=== PATIENT | female | born 1950 | race Caucasian/White ===

== ENCOUNTER 2018-07-23 15:34 | Inpatient (IN) ==
[2018-07-23 18:45] LABS: Basophils # 0.1 10*3/uL (0.0-0.2); Basophils % 0.4 % (0.0-0.8); Eosinophils % 0.3 % (0.00-10.9); Hematocrit 56.5 VOL% (35.7-47.0); Hemoglobin 17.5 GM/DL (12.0-16.0); Immature Granulocytes % 0.6 %; Immature Granulocytes Absolute 0.09 #; Lymphocytes # 0.8 10*3/uL (1.4-4.0); Mean Corpuscular Hemoglobin 27 PG (27-34); Mean Corpuscular Volume 88.1 FL (87-102); Mean Platelet Volume 10.6 FL (9.6-12.0); Monocytes # 0.5 10*3/uL (0.11-0.8); Neutrophils # 14.4 10*3/uL (1.4-7.4); Neutrophils % 90.7 % (38.7-73.9); Platelet Count 304 T/CUMM (130-400); Red Blood Count 6.41 MC/CUMM (3.8-5.5); Red Cell Distribution Width 17.1 % (9.3-17.3); White Blood Count 15.8 T/CUMM (4-12)
[2018-07-23 18:49] LABS: INR 1.2; PT Patient Result 12.9 SECS
[2018-07-23 19:02] LABS: Alanine Aminotransferase 20 U/L (13-56); Albumin 3.7 G/DL (3.4-5.0); Alkaline Phosphatase 135 U/L (45-117); Aspartate Amino Transferase 23 U/L (0-37); Blood Urea Nitrogen 17 MG/DL (7-18); Calcium 8.8 MG/DL (8.5-10.1); Potassium 3.2 MMOL/L (3.5-5.1); Sodium 143 MMOL/L (136-145); Thyroid Stimulating Hormone 0.993 uIU/ml (0.358-3.74); Total Protein 6.8 G/DL (6.4-8.3)
[2018-07-23 19:06] LABS: Glucose 25 MG/DL (74-106)
[2018-07-23] MEDS ORDERED: DEXTROSE 50% 25 GM/50 ML SYRINGE IV ONE (19:07)
[2018-07-23] MEDS ORDERED: DEXTROSE 50% 25 GM/50 ML VIAL IV STA (19:09)
[2018-07-23 19:14] LABS: ABG Base Excess -4.8 MMOL/L (-2.5-2.5); ABG HCO3 20.6 MMOL/L (20-26); ABG Oxygen Saturation 98.8 % (95-100); ABG PCO2 42.3 MM HG (35-48); ABG PH 7.314 (7.35-7.45); Allen Test Positive
[2018-07-23 19:17] LABS: Band Neutrophils 8 % (0-10); Lymphocytes 5 % (20-55); Platelet Estimate Normal; Segmented Neutrophils 84 % (50-85); Total Cells Counted 100
[2018-07-23 19:27] LABS: Apearance,Urine CLEAR (Clear); Bacteria,Urine Occasional /HPF (Few); Bilirubin,Urine Negative (Negative); Blood, Urine Negative (Negative); Glucose,Urine (UA) Negative (Negative); Ketones,Urine Negative (Negative); Nitrite,Urine Negative (Negative); Protein,Urine Negative; RBC,Urine 2 /HPF (0-4); Urine Color Yellow (Yellow); Urine Specific Gravity 1.015 (1.001-1.035); Urine Urobilinogen < 2.0 EU/DL (0.2-1.0); WBC,Urine 1 /HPF (0-6)
[2018-07-23 19:33] LABS: Barbiturates Screen,Urine Negative (Negative); Benzodiazepines Screen,Urine Negative (Negative); Cannabinoid Screen,Urine Negative (Negative); Opiate Screen,Urine Negative (Negative); Phencyclidine Screen,Urine Negative (Negative)
[2018-07-23] MEDS ORDERED: ACETAMINOPHEN 325 MG TABLET PO PRN (21:53)
[2018-07-23] MEDS ORDERED: ALBUTEROL 2.5 MG/3 ML NEB RESP TX PRN (21:53)
[2018-07-23] MEDS ORDERED: DEXTROSE 5% NACL 0.45% 1,000 ML IV SCH (22:00)
[2018-07-23] MEDS ORDERED: MAGNESIUM SULF RIDER 4 GM in PREMIX 1 EACH IV PRN (22:03)
[2018-07-24] MEDS: DEXTROSE 50% 25 GM/50 ML SYRINGE IV PRN ×4 (00:03→06:50)
[2018-07-24] MEDS: POTASSIUM CHLORIDE 20 MEQ TABLET PO PRN ×4 (03:57→12:06)
[2018-07-24 05:07] LABS: Basophils # 0.1 10*3/uL (0.0-0.2); Basophils % 0.4 % (0.0-0.8); Eosinophils # 0.1 10*3/uL (0.0-0.87); Eosinophils % 0.4 % (0.00-10.9); Hematocrit 51.7 VOL% (35.7-47.0); Hemoglobin 15.6 GM/DL (12.0-16.0); Immature Granulocytes % 0.5 %; Immature Granulocytes Absolute 0.06 #; Lymphocytes # 1.3 10*3/uL (1.4-4.0); Lymphocytes % 10.6 % (21.3-54.2); Mean Corpuscular HGB Conc 30.2 GM/DL (32-36); Mean Corpuscular Hemoglobin 27 PG (27-34); Mean Corpuscular Volume 88.7 FL (87-102); Mean Platelet Volume 11.4 FL (9.6-12.0); Monocytes # 0.7 10*3/uL (0.11-0.8); Monocytes % 5.9 % (1.7-12.7); Neutrophils # 9.8 10*3/uL (1.4-7.4); Neutrophils % 82.2 % (38.7-73.9); Platelet Count 278 T/CUMM (130-400); Red Blood Count 5.83 MC/CUMM (3.8-5.5); Red Cell Distribution Width 15.8 % (9.3-17.3); White Blood Count 11.9 T/CUMM (4-12)
[2018-07-24 05:23] LABS: Calcium 8.3 MG/DL (8.5-10.1); Osmolality,Calculated 283.8 MOS/KG (273-304)
[2018-07-24] MEDS ORDERED: SODIUM CHLORIDE 0.9% 500 ML IV ONE (06:05)
[2018-07-24] MEDS: DEXTROSE 5% NACL 0.9% 1,000 ML IV SCH ×2 (06:49→18:32)
[2018-07-24] MEDS: ASPIRIN EC 325 MG TABLET PO SCH (09:00)
[2018-07-24] MEDS ORDERED: MORPHINE 4 MG/1 ML VIAL IM PRN (15:43)
[2018-07-24] MEDS: MORPHINE 4 MG/1 ML VIAL IV PRN (15:55)
[2018-07-24] MEDS: HEPARIN DRIP 25,000 UNITS/500 ML PREMIX IV SCH (18:21)
[2018-07-24 20:10] LABS: INR 1.1; PT Patient Result 11.9 SECS
[2018-07-24 20:12] LABS: Partial Thromboplastin Time 50.9 SECS (0-40)
[2018-07-24] MEDS: CARBIDOPA/LEVODOPA 10-100 MG TABLET PO SCH (20:17)
[2018-07-24] MEDS: HYDROmorphone 2 MG/1 ML VIAL IV PRN ×2 (20:17→23:17)
[2018-07-25] MEDS: MORPHINE 4 MG/1 ML VIAL IV PRN ×4 (01:49→17:54)
[2018-07-25] MEDS: HYDROmorphone 2 MG/1 ML VIAL IV PRN ×3 (05:06→14:13)
[2018-07-25] MEDS: DEXTROSE 5% NACL 0.9% 1,000 ML IV SCH ×3 (05:07→18:00)
[2018-07-25 05:48] LABS: Calcium 8.2 MG/DL (8.5-10.1); Osmolality,Calculated 285.8 MOS/KG (273-304); Potassium 4.2 MMOL/L (3.5-5.1)
[2018-07-25 05:52] LABS: Basophils # 0.1 10*3/uL (0.0-0.2); Basophils % 0.6 % (0.0-0.8); Eosinophils # 0.1 10*3/uL (0.0-0.87); Hematocrit 52.7 VOL% (35.7-47.0); Hemoglobin 15.8 GM/DL (12.0-16.0); Immature Granulocytes % 0.6 %; Immature Granulocytes Absolute 0.08 #; Lymphocytes # 1.9 10*3/uL (1.4-4.0); Lymphocytes % 13.8 % (21.3-54.2); Mean Corpuscular Hemoglobin 27 PG (27-34); Mean Corpuscular Volume 91.5 FL (87-102); Mean Platelet Volume 11.7 FL (9.6-12.0); Monocytes # 0.7 10*3/uL (0.11-0.8); Neutrophils # 10.7 10*3/uL (1.4-7.4); Platelet Count 161 T/CUMM (130-400); Red Blood Count 5.76 MC/CUMM (3.8-5.5); Red Cell Distribution Width 16.3 % (9.3-17.3); White Blood Count 13.5 T/CUMM (4-12)
[2018-07-25] MEDS: MAGNESIUM SULF RIDER 2 GM in PREMIX 1 EACH IV PRN (06:22)
[2018-07-25] MEDS ORDERED: MORPHINE 4 MG/1 ML VIAL IV PRN (09:21)
[2018-07-25] MEDS: CARBIDOPA/LEVODOPA 10-100 MG TABLET PO SCH ×3 (09:29→21:47)
[2018-07-25] MEDS: ASPIRIN EC 325 MG TABLET PO SCH (09:29)
[2018-07-25] MEDS: IBUPROFEN 600 MG TABLET PO SCH ×3 (09:29→22:00)
[2018-07-25] MEDS: ONDANSETRON 4 MG/2 ML VIAL IV PRN ×3 (09:35→18:29)
[2018-07-25] MEDS ORDERED: KETOROLAC 30 MG/1 ML VIAL IV ONE (10:45)
[2018-07-25] MEDS ORDERED: LORazepam 2 MG/1 ML VIAL IV ONE (10:46)
[2018-07-25] MEDS: LORazepam 2 MG/1 ML VIAL IV PRN ×2 (15:09→21:52)
[2018-07-25] MEDS ORDERED: FUROSEMIDE 40 MG/4 ML VIAL IV ONE (18:52)
[2018-07-25] MEDS: HEPARIN DRIP 25,000 UNITS/500 ML PREMIX IV SCH (21:38)
[2018-07-26 00:31] LABS: Basophils # 0.1 10*3/uL (0.0-0.2); Basophils % 0.6 % (0.0-0.8); Eosinophils # 0.2 10*3/uL (0.0-0.87); Eosinophils % 1.9 % (0.00-10.9); Hemoglobin 15.3 GM/DL (12.0-16.0); Immature Granulocytes % 0.5 %; Immature Granulocytes Absolute 0.05 #; Lymphocytes # 1.6 10*3/uL (1.4-4.0); Lymphocytes % 15.2 % (21.3-54.2); Mean Corpuscular HGB Conc 29.8 GM/DL (32-36); Mean Corpuscular Hemoglobin 27 PG (27-34); Mean Corpuscular Volume 89.9 FL (87-102); Mean Platelet Volume 10.6 FL (9.6-12.0); Monocytes # 0.5 10*3/uL (0.11-0.8); Monocytes % 4.2 % (1.7-12.7); Neutrophils # 8.4 10*3/uL (1.4-7.4); Neutrophils % 77.6 % (38.7-73.9); Platelet Count 218 T/CUMM (130-400); Red Blood Count 5.72 MC/CUMM (3.8-5.5); Red Cell Distribution Width 15.9 % (9.3-17.3); White Blood Count 10.8 T/CUMM (4-12)
[2018-07-26 00:38] LABS: Hematocrit 51.4 VOL% (35.7-47.0)
[2018-07-26 00:48] LABS: Calcium 8.2 MG/DL (8.5-10.1); Potassium 3.8 MMOL/L (3.5-5.1)
[2018-07-26] MEDS: DEXTROSE 5% NACL 0.9% 1,000 ML IV SCH ×3 (04:00→21:57)
[2018-07-26] MEDS: IBUPROFEN 600 MG TABLET PO SCH ×3 (08:24→21:57)
[2018-07-26] MEDS: CARBIDOPA/LEVODOPA 10-100 MG TABLET PO SCH ×3 (08:24→21:57)
[2018-07-26] MEDS: ASPIRIN EC 325 MG TABLET PO SCH (08:24)
[2018-07-26] MEDS: POTASSIUM CHLORIDE 20 MEQ TABLET PO PRN (08:24)
[2018-07-26] MEDS: BENZTROPINE 1 MG TABLET PO SCH ×2 (08:24→08:39)
[2018-07-26] MEDS: ONDANSETRON 4 MG/2 ML VIAL IV PRN ×2 (08:37→18:53)
[2018-07-26] MEDS ORDERED: ONDANSETRON 4 MG/2 ML VIAL IV ONE (13:00)
[2018-07-26] MEDS ORDERED: CARBIDOPA PO SCH (15:00)
[2018-07-26] MEDS ORDERED: LEVODOPA PO SCH (15:00)
[2018-07-26] MEDS: LORazepam 2 MG/1 ML VIAL IV PRN (15:13)
[2018-07-26] MEDS ORDERED: PROMETHAZINE 25 MG/1 ML VIAL IM PRN (20:10)
[2018-07-26] MEDS: APIXABAN 5 MG TABLET PO SCH (21:57)
[2018-07-26] MEDS: ALLOPURINOL 100 MG TABLET PO SCH (21:58)
[2018-07-27] MEDS: HEPARIN DRIP 25,000 UNITS/500 ML PREMIX IV SCH (02:33)
[2018-07-27] MEDS ORDERED: BENZTROPINE 1 MG TABLET PO SCH (09:00)
[2018-07-27] MEDS: LISINOPRIL 20 MG TABLET PO SCH (10:16)
[2018-07-27] MEDS: SIMVASTATIN 40 MG TABLET PO SCH (10:17)
[2018-07-27] MEDS: BENZTROPINE 1 MG TABLET PO SCH (10:17)
[2018-07-27] MEDS: NIACIN ER 500 MG TABLET PO SCH (10:17)
[2018-07-27] MEDS: IBUPROFEN 600 MG TABLET PO SCH ×3 (10:18→20:46)
[2018-07-27] MEDS: CARBIDOPA/LEVODOPA 10-100 MG TABLET PO SCH ×3 (10:18→20:46)
[2018-07-27] MEDS: APIXABAN 5 MG TABLET PO SCH ×2 (10:18→20:46)
[2018-07-27] MEDS: ALLOPURINOL 100 MG TABLET PO SCH ×2 (10:19→20:46)
[2018-07-27] MEDS: ATENOLOL 100 MG TABLET PO SCH (10:19)
[2018-07-27] MEDS: ASPIRIN EC 325 MG TABLET PO SCH (10:21)
[2018-07-27] MEDS: DEXTROSE 5% NACL 0.9% 1,000 ML IV SCH ×2 (14:22→14:23)
[2018-07-28] MEDS: DEXTROSE 5% NACL 0.9% 1,000 ML IV SCH ×2 (00:22→12:15)
[2018-07-28 01:04] LABS: Basophils % 0.5 % (0.0-0.8); Eosinophils # 0.2 10*3/uL (0.0-0.87); Eosinophils % 2.4 % (0.00-10.9); Hematocrit 46.2 VOL% (35.7-47.0); Hemoglobin 14.1 GM/DL (12.0-16.0); Immature Granulocytes % 0.4 %; Immature Granulocytes Absolute 0.03 #; Lymphocytes # 1.4 10*3/uL (1.4-4.0); Lymphocytes % 16.9 % (21.3-54.2); Mean Corpuscular HGB Conc 30.5 GM/DL (32-36); Mean Corpuscular Hemoglobin 27 PG (27-34); Mean Corpuscular Volume 87.3 FL (87-102); Mean Platelet Volume 10.9 FL (9.6-12.0); Monocytes # 0.4 10*3/uL (0.11-0.8); Neutrophils # 6.3 10*3/uL (1.4-7.4); Neutrophils % 74.8 % (38.7-73.9); Platelet Count 220 T/CUMM (130-400); Red Blood Count 5.29 MC/CUMM (3.8-5.5); Red Cell Distribution Width 15.4 % (9.3-17.3); White Blood Count 8.4 T/CUMM (4-12)
[2018-07-28 01:23] LABS: Calcium 7.6 MG/DL (8.5-10.1); Osmolality,Calculated 285.7 MOS/KG (273-304); Potassium 3.3 MMOL/L (3.5-5.1)
[2018-07-28] MEDS: IBUPROFEN 600 MG TABLET PO SCH ×2 (08:47→14:36)
[2018-07-28] MEDS: BENZTROPINE 1 MG TABLET PO SCH (08:47)
[2018-07-28] MEDS: LISINOPRIL 20 MG TABLET PO SCH (08:47)
[2018-07-28] MEDS: NIACIN ER 500 MG TABLET PO SCH (08:47)
[2018-07-28] MEDS: POTASSIUM CHLORIDE 20 MEQ TABLET PO PRN ×3 (08:48→14:36)
[2018-07-28] MEDS: APIXABAN 5 MG TABLET PO SCH ×2 (08:48→21:19)
[2018-07-28] MEDS: ALLOPURINOL 100 MG TABLET PO SCH ×2 (08:48→21:20)
[2018-07-28] MEDS: ATENOLOL 100 MG TABLET PO SCH (08:48)
[2018-07-28] MEDS: SIMVASTATIN 40 MG TABLET PO SCH (08:48)
[2018-07-28] MEDS: ASPIRIN EC 325 MG TABLET PO SCH (08:48)
[2018-07-28] MEDS: CARBIDOPA/LEVODOPA 10-100 MG TABLET PO SCH ×3 (08:48→21:20)
[2018-07-28 14:23] LABS: Apearance,Urine CLOUDY (Clear); Bilirubin,Urine Negative (Negative); Blood, Urine Large mg/dL (Negative); Glucose,Urine (UA) Negative (Negative); Ketones,Urine Negative (Negative); Nitrite,Urine Positive (Negative); Protein,Urine Negative; RBC,Urine 467 /HPF (0-4); Squamous Epithelial Cell,Urine Occasional /HPF (0-10); Urine Color Yellow (Yellow); Urine Specific Gravity 1.012 (1.001-1.035); WBC,Urine 146 /HPF (0-6)
[2018-07-28] MEDS: cefTRIAXone 1,000 MG in SYRINGE 1 EACH IV SCH (19:04)
[2018-07-29 06:30] LABS: Osmolality,Calculated 285.7 MOS/KG (273-304)
[2018-07-29 06:31] LABS: Basophils # 0.1 10*3/uL (0.0-0.2); Basophils % 0.7 % (0.0-0.8); Eosinophils # 0.1 10*3/uL (0.0-0.87); Immature Granulocytes % 0.7 %; Immature Granulocytes Absolute 0.05 #; Lymphocytes % 14.6 % (21.3-54.2); Mean Corpuscular HGB Conc 30.4 GM/DL (32-36); Mean Corpuscular Hemoglobin 27 PG (27-34); Mean Platelet Volume 11.4 FL (9.6-12.0); Monocytes # 0.4 10*3/uL (0.11-0.8); Neutrophils # 5.3 10*3/uL (1.4-7.4); Platelet Count 204 T/CUMM (130-400); Red Blood Count 5.57 MC/CUMM (3.8-5.5); Red Cell Distribution Width 15.3 % (9.3-17.3); White Blood Count 6.9 T/CUMM (4-12)
[2018-07-29 06:33] LABS: Hemoglobin 14.9 GM/DL (12.0-16.0)
[2018-07-29] MEDS: BENZTROPINE 1 MG TABLET PO SCH (08:34)
[2018-07-29] MEDS: SIMVASTATIN 40 MG TABLET PO SCH (08:34)
[2018-07-29] MEDS: APIXABAN 5 MG TABLET PO SCH ×2 (08:35→21:08)
[2018-07-29] MEDS: NIACIN ER 500 MG TABLET PO SCH (08:35)
[2018-07-29] MEDS: ALLOPURINOL 100 MG TABLET PO SCH ×2 (08:35→21:08)
[2018-07-29] MEDS: ATENOLOL 100 MG TABLET PO SCH (08:35)
[2018-07-29] MEDS: ASPIRIN EC 325 MG TABLET PO SCH (08:35)
[2018-07-29] MEDS: CARBIDOPA/LEVODOPA 10-100 MG TABLET PO SCH ×3 (08:35→21:08)
[2018-07-29] MEDS: LISINOPRIL 20 MG TABLET PO SCH (08:41)
[2018-07-29] MEDS: MAGNESIUM SULF RIDER 2 GM in PREMIX 1 EACH IV PRN (08:42)
[2018-07-29] MEDS: cefTRIAXone 1,000 MG in SYRINGE 1 EACH IV SCH (18:10)
[2018-07-30 07:01] LABS: Hepatitis A Ab IgM Quant 0.18 Index; Hepatitis A Ab IgM Result Negative (Negative); Hepatitis B Core IgM Quant 0.06 Index; Hepatitis B Core IgM Result Negative (Negative); Hepatitis B Surface Ag Quant 0.21 Index; Hepatitis B Surface Ag Result Negative (Negative); Hepatitis C Virus Ab Quant < 0.02 Index; Hepatitis C Virus Ab Result Negative (Negative)
[2018-07-30] MEDS: ASPIRIN EC 325 MG TABLET PO SCH (08:59)
[2018-07-30] MEDS: SIMVASTATIN 40 MG TABLET PO SCH (08:59)
[2018-07-30] MEDS: BENZTROPINE 1 MG TABLET PO SCH (08:59)
[2018-07-30] MEDS: NIACIN ER 500 MG TABLET PO SCH (08:59)
[2018-07-30] MEDS: CARBIDOPA/LEVODOPA 10-100 MG TABLET PO SCH ×3 (08:59→21:21)
[2018-07-30] MEDS: LISINOPRIL 20 MG TABLET PO SCH (08:59)
[2018-07-30] MEDS: ALLOPURINOL 100 MG TABLET PO SCH ×2 (09:00→21:21)
[2018-07-30] MEDS: ATENOLOL 100 MG TABLET PO SCH (09:00)
[2018-07-30] MEDS: APIXABAN 5 MG TABLET PO SCH ×2 (09:00→21:21)
[2018-07-30] MEDS: cefTRIAXone 1,000 MG in SYRINGE 1 EACH IV SCH (21:20)
[2018-07-31 05:23] LABS: Calcium 8.7 MG/DL (8.5-10.1); Osmolality,Calculated 284.3 MOS/KG (273-304); Potassium 3.7 MMOL/L (3.5-5.1)
[2018-07-31 05:40] LABS: Basophils # 0.1 10*3/uL (0.0-0.2); Basophils % 0.6 % (0.0-0.8); Eosinophils # 0.2 10*3/uL (0.0-0.87); Eosinophils % 2.5 % (0.00-10.9); Hematocrit 47.1 VOL% (35.7-47.0); Hemoglobin 14.5 GM/DL (12.0-16.0); Immature Granulocytes % 0.6 %; Immature Granulocytes Absolute 0.06 #; Lymphocytes # 1.9 10*3/uL (1.4-4.0); Lymphocytes % 19.6 % (21.3-54.2); Mean Corpuscular HGB Conc 30.8 GM/DL (32-36); Mean Corpuscular Hemoglobin 27 PG (27-34); Mean Corpuscular Volume 86.3 FL (87-102); Mean Platelet Volume 11.1 FL (9.6-12.0); Monocytes # 0.5 10*3/uL (0.11-0.8); Monocytes % 5.4 % (1.7-12.7); Neutrophils # 6.8 10*3/uL (1.4-7.4); Neutrophils % 71.3 % (38.7-73.9); Platelet Count 221 T/CUMM (130-400); Red Blood Count 5.46 MC/CUMM (3.8-5.5); Red Cell Distribution Width 15.5 % (9.3-17.3); White Blood Count 9.5 T/CUMM (4-12)
[2018-07-31] MEDS: SIMVASTATIN 40 MG TABLET PO SCH (10:49)
[2018-07-31] MEDS: APIXABAN 5 MG TABLET PO SCH (10:49)
[2018-07-31] MEDS: BENZTROPINE 1 MG TABLET PO SCH (10:49)
[2018-07-31] MEDS: NIACIN ER 500 MG TABLET PO SCH (10:49)
[2018-07-31] MEDS: CARBIDOPA/LEVODOPA 10-100 MG TABLET PO SCH ×2 (10:49→16:58)
[2018-07-31] MEDS: LISINOPRIL 20 MG TABLET PO SCH (10:49)
[2018-07-31] MEDS: ASPIRIN EC 325 MG TABLET PO SCH (10:49)
[2018-07-31] MEDS: ATENOLOL 100 MG TABLET PO SCH (10:50)
[2018-07-31] MEDS: ALLOPURINOL 100 MG TABLET PO SCH (10:50)
[2018-07-31 17:01] VITALS: BP 141/89
[2018-08-06] MEDS ORDERED: APIXABAN 5 MG TABLET PO SCH (09:00)
== END 2018-07-31 17:56 | disposition home or self-care (01) | DRG 640 ==
LOC: N.EDINP 15:34 → N.ED 15:34 → SUATTDRO 21:44 → N.CC 23:28 → SUATTDRO 07-24 09:20 → N.5E 07-27 13:16
PROVIDERS: ADMIT Internal Medicine; ATTEND Internal Medicine

== ENCOUNTER 2020-04-10 13:57 | Inpatient (IN) ==
[2020-04-10] MEDS ORDERED: DILTIAZEM 50 MG/10 ML VIAL IV STA ×2 (14:09→14:21)
[2020-04-10] MEDS ORDERED: DILTIAZEM 25 MG/5 ML VIAL IV ONE (14:34)
[2020-04-10 14:50] LABS: Basophils # 0.2 10*3/uL (0.0-0.2); Basophils % 1.4 % (0.0-0.8); Eosinophils # 0.3 10*3/uL (0.0-0.87); Eosinophils % 1.6 % (0.00-10.9); Immature Granulocytes % 0.5 %; Immature Granulocytes Absolute 0.08 #; Lymphocytes # 1.9 10*3/uL (1.4-4.0); Lymphocytes % 11.1 % (21.3-54.2); Mean Corpuscular HGB Conc 30.9 GM/DL (32-36); Mean Corpuscular Volume 82.9 FL (87-102); Mean Platelet Volume 11.2 FL (9.6-12.0); Monocytes % 2.8 % (1.7-12.7); Neutrophils % 82.6 % (38.7-73.9); Platelet Count 348 T/CUMM (130-400); Red Blood Count 8.17 MC/CUMM (3.8-5.5); Red Cell Distribution Width 19.7 % (9.3-17.3); White Blood Count 16.7 T/CUMM (4-12)
[2020-04-10 14:51] LABS: Hematocrit 67.7 VOL% (35.7-47.0); Hemoglobin 20.9 GM/DL (12.0-16.0)
[2020-04-10] MEDS ORDERED: SODIUM CHLORIDE 0.9% 500 ML IV STA (14:59)
[2020-04-10 15:24] LABS: Albumin 4.3 G/DL (3.4-5.0); Bilirubin,Total 2.9 MG/DL (0.2-1.0); Calcium 9.5 MG/DL (8.5-10.1); Osmolality,Calculated 281.3 MOS/KG (273-304); Thyroid Stimulating Hormone 6.3 uIU/ml (0.358-3.74); Total Protein 7.7 G/DL (6.4-8.3)
[2020-04-10] MEDS: dilTIAZem Drip 125 MG/125 ML PREMIX IV SCH (15:34)
[2020-04-10] MEDS ORDERED: ONDANSETRON 4 MG/2 ML VIAL IV PRN (16:13)
[2020-04-10] MEDS ORDERED: ACETAMINOPHEN 325 MG TABLET PO PRN (16:13)
[2020-04-10] MEDS ORDERED: GLUCAGON 1 MG VIAL IM PRN (16:13)
[2020-04-10] MEDS ORDERED: DEXTROSE 50% 25 GM/50 ML VIAL IV PRN (16:13)
[2020-04-10] MEDS ORDERED: SIMVASTATIN 40 MG TABLET PO SCH (21:00)
[2020-04-10] MEDS ORDERED: ENOXAPARIN 40 MG/0.4 ML SYRINGE SUBCUT SCH (21:00)
[2020-04-10] MEDS: ENOXAPARIN 80 MG/0.8 ML SYRINGE SUBCUT SCH (21:14)
[2020-04-10] MEDS: AMANTADINE 100 MG CAPSULE PO SCH (21:15)
[2020-04-10] MEDS: CARBIDOPA/LEVODOPA 10-100 MG TABLET PO SCH (21:15)
[2020-04-11 05:32] LABS: Basophils # 0.1 10*3/uL (0.0-0.2); Basophils % 0.8 % (0.0-0.8); Eosinophils # 0.2 10*3/uL (0.0-0.87); Eosinophils % 1.1 % (0.00-10.9); Hematocrit 57.9 VOL% (35.7-47.0); Immature Granulocytes % 0.4 %; Immature Granulocytes Absolute 0.07 #; Lymphocytes # 1.8 10*3/uL (1.4-4.0); Lymphocytes % 11.2 % (21.3-54.2); Mean Corpuscular HGB Conc 31.1 GM/DL (32-36); Mean Corpuscular Volume 83.4 FL (87-102); Mean Platelet Volume 10.8 FL (9.6-12.0); Monocytes % 3.5 % (1.7-12.7); Platelet Count 285 T/CUMM (130-400); Red Blood Count 6.94 MC/CUMM (3.8-5.5); Red Cell Distribution Width 18.9 % (9.3-17.3); White Blood Count 16.2 T/CUMM (4-12)
[2020-04-11] MEDS: ENOXAPARIN 80 MG/0.8 ML SYRINGE SUBCUT SCH (06:06)
[2020-04-11 06:16] LABS: Calcium 8.3 MG/DL (8.5-10.1); Osmolality,Calculated 284.1 MOS/KG (273-304); Risk Ratio 2.3
[2020-04-11] MEDS: dilTIAZem Drip 125 MG/125 ML PREMIX IV SCH (07:13)
[2020-04-11] MEDS ORDERED: POTASSIUM CHLORIDE 20 MEQ TABLET PO ONE (08:44)
[2020-04-11] MEDS: AMANTADINE 100 MG CAPSULE PO SCH ×2 (09:00→21:36)
[2020-04-11] MEDS: lisinopriL 20 MG TABLET PO SCH (09:00)
[2020-04-11] MEDS: CARBIDOPA/LEVODOPA 10-100 MG TABLET PO SCH ×2 (09:00→21:36)
[2020-04-11] MEDS: allopurinoL 100 MG TABLET PO SCH (09:00)
[2020-04-11] MEDS: POTASSIUM CHLORIDE 20 MEQ TABLET PO PRN ×3 (09:01→13:47)
[2020-04-11] MEDS: CHOLECALCIFEROL 5,000 UNIT TABLET PO SCH (09:03)
[2020-04-11] MEDS: APIXABAN 5 MG TABLET PO SCH ×2 (11:07→21:36)
[2020-04-11] MEDS: DILTIAZEM 60 MG TABLET PO SCH ×4 (11:09→21:36)
[2020-04-11] MEDS: AZITHROMYCIN INJ 500 MG in SODIUM CHLORIDE 0.9% 250 ML IV SCH (12:35)
[2020-04-11] MEDS: cefTRIAXone 1,000 MG in SYRINGE 1 EACH IV SCH (12:36)
[2020-04-11] MEDS: atenoloL 50 MG TABLET PO SCH (13:47)
[2020-04-11] MEDS: ASPIRIN EC 325 MG TABLET PO SCH (21:36)
[2020-04-12 04:55] LABS: Basophils # 0.2 10*3/uL (0.0-0.2); Basophils % 1.1 % (0.0-0.8); Eosinophils # 0.2 10*3/uL (0.0-0.87); Eosinophils % 1.1 % (0.00-10.9); Hemoglobin 18.9 GM/DL (12.0-16.0); Immature Granulocytes % 0.4 %; Immature Granulocytes Absolute 0.08 #; Lymphocytes # 1.9 10*3/uL (1.4-4.0); Lymphocytes % 10.5 % (21.3-54.2); Mean Corpuscular HGB Conc 30.4 GM/DL (32-36); Mean Corpuscular Volume 84.2 FL (87-102); Mean Platelet Volume 11.8 FL (9.6-12.0); Monocytes % 3.7 % (1.7-12.7); Neutrophils % 83.2 % (38.7-73.9); Platelet Count 293 T/CUMM (130-400); Red Blood Count 7.39 MC/CUMM (3.8-5.5); Red Cell Distribution Width 19.4 % (9.3-17.3); White Blood Count 18.3 T/CUMM (4-12)
[2020-04-12 04:59] LABS: Hematocrit 62.2 VOL% (35.7-47.0)
[2020-04-12 05:39] LABS: Calcium 8.6 MG/DL (8.5-10.1); Osmolality,Calculated 283.3 MOS/KG (273-304); Osmolality,Calculated 284.3 MOS/KG (273-304)
[2020-04-12] MEDS: LEVOTHYROXINE 25 MCG TABLET PO SCH (05:43)
[2020-04-12] MEDS: DILTIAZEM 60 MG TABLET PO SCH ×4 (09:11→21:23)
[2020-04-12] MEDS: APIXABAN 5 MG TABLET PO SCH ×2 (09:11→21:23)
[2020-04-12] MEDS: AMANTADINE 100 MG CAPSULE PO SCH ×2 (09:11→21:44)
[2020-04-12] MEDS: allopurinoL 100 MG TABLET PO SCH (09:12)
[2020-04-12] MEDS: atenoloL 50 MG TABLET PO SCH (09:13)
[2020-04-12] MEDS: CARBIDOPA/LEVODOPA 10-100 MG TABLET PO SCH ×2 (09:13→21:23)
[2020-04-12] MEDS: CHOLECALCIFEROL 5,000 UNIT TABLET PO SCH (09:13)
[2020-04-12] MEDS: lisinopriL 20 MG TABLET PO SCH (09:15)
[2020-04-12] MEDS ORDERED: DEXTROSE 5% 1,000 ML IV SCH (09:30)
[2020-04-12] MEDS: cefTRIAXone 1,000 MG in SYRINGE 1 EACH IV SCH (11:54)
[2020-04-12] MEDS: AZITHROMYCIN INJ 500 MG in SODIUM CHLORIDE 0.9% 250 ML IV SCH (11:57)
[2020-04-12] MEDS ORDERED: SODIUM CHLOR 0.45% KCL 20 MEQ 20 MEQ/1,000 ML BAG IV SCH (12:00)
[2020-04-12] MEDS ORDERED: methylPREDNISolone SOD SUC 125 MG/2 ML VIAL IV ONE (15:39)
[2020-04-12 15:59] LABS: ABG Base Excess -2.5 MMOL/L (-2.5-2.5); ABG HCO3 22.4 MMOL/L (20-26); ABG Oxygen Saturation 99.5 % (95-100); ABG PH 7.389 (7.35-7.45); ABG TCO2 17.4 MMOL/L (23-27)
[2020-04-12 16:18] LABS: Basophils # 0.2 10*3/uL (0.0-0.2); Basophils % 0.7 % (0.0-0.8); Eosinophils # 0.2 10*3/uL (0.0-0.87); Eosinophils % 0.8 % (0.00-10.9); Hemoglobin 19.4 GM/DL (12.0-16.0); Immature Granulocytes % 0.7 %; Immature Granulocytes Absolute 0.14 #; Lymphocytes % 4.6 % (21.3-54.2); Mean Corpuscular HGB Conc 30.4 GM/DL (32-36); Mean Corpuscular Volume 83.7 FL (87-102); Mean Platelet Volume 11.5 FL (9.6-12.0); Monocytes % 3.2 % (1.7-12.7); Platelet Count 324 T/CUMM (130-400); Red Blood Count 7.63 MC/CUMM (3.8-5.5); Red Cell Distribution Width 19.7 % (9.3-17.3); White Blood Count 21.4 T/CUMM (4-12)
[2020-04-12 16:19] LABS: Calcium 8.9 MG/DL (8.5-10.1); Osmolality,Calculated 280.5 MOS/KG (273-304)
[2020-04-12 16:23] LABS: Hematocrit 63.9 VOL% (35.7-47.0)
[2020-04-12 16:29] LABS: Band Neutrophils 2 % (0-10); Lymphocytes 4 % (20-55); Segmented Neutrophils 92 % (50-85); Total Cells Counted 100
[2020-04-12 16:30] LABS: Platelet Estimate Adequate; Polychromasia 1+
[2020-04-12] MEDS ORDERED: FUROSEMIDE 20 MG/2 ML VIAL IV ONE ×2 (16:41→18:30)
[2020-04-12] MEDS: PIPERACILLIN/TAZOBACTAM 3,375 MG in SODIUM CHLORIDE 0.9% 100 ML IV SCH (17:37)
[2020-04-12 18:29] LABS: Bilirubin,Urine Negative (Negative); Blood, Urine Moderate mg/dL (Negative); Glucose,Urine (UA) Negative (Negative); Ketones,Urine Negative (Negative); Nitrite,Urine Negative (Negative); Protein,Urine 30 MG/DL; RBC,Urine 2 /HPF (0-4); Squamous Epithelial Cell,Urine Occasional /HPF (0-10); Urine Appearance CLEAR (Clear); Urine Color Yellow (Yellow); Urine Specific Gravity 1.008 (1.001-1.035); Urine Urobilinogen < 2.0 EU/DL (0.2-1.0); WBC,Urine 2 /HPF (0-6)
[2020-04-12 19:45] LABS: Troponin I < 0.015 NG/ML (0.00-0.045)
[2020-04-12] MEDS: FUROSEMIDE 20 MG/2 ML VIAL IV SCH (21:23)
[2020-04-12] MEDS: ASPIRIN EC 325 MG TABLET PO SCH (21:23)
[2020-04-13 00:47] LABS: Albumin 3.1 G/DL (3.4-5.0); Bilirubin,Direct 0.51 MG/DL (0.0-0.20); Bilirubin,Indirect 1.1 MG/DL (0.0-1.0); Bilirubin,Total 1.6 MG/DL (0.2-1.0); Calcium 8.9 MG/DL (8.5-10.1); Osmolality,Calculated 291.7 MOS/KG (273-304); Total Protein 6.3 G/DL (6.4-8.3)
[2020-04-13 00:49] LABS: Albumin 3.2 G/DL (3.4-5.0); Bilirubin,Total 2.1 MG/DL (0.2-1.0); Calcium 8.9 MG/DL (8.5-10.1); Osmolality,Calculated 293.5 MOS/KG (273-304); Total Protein 6.4 G/DL (6.4-8.3); Troponin I < 0.015 NG/ML (0.00-0.045)
[2020-04-13] MEDS: PIPERACILLIN/TAZOBACTAM 3,375 MG in SODIUM CHLORIDE 0.9% 100 ML IV SCH ×3 (01:08→18:05)
[2020-04-13 01:19] LABS: Basophils # 0.1 10*3/uL (0.0-0.2); Basophils % 0.6 % (0.0-0.8); Hemoglobin 19.1 GM/DL (12.0-16.0); Immature Granulocytes % 0.7 %; Immature Granulocytes Absolute 0.14 #; Lymphocytes # 0.5 10*3/uL (1.4-4.0); Lymphocytes % 2.5 % (21.3-54.2); Mean Corpuscular HGB Conc 31.1 GM/DL (32-36); Mean Corpuscular Volume 83.2 FL (87-102); Mean Platelet Volume 11.7 FL (9.6-12.0); Monocytes % 0.4 % (1.7-12.7); Neutrophils % 95.8 % (38.7-73.9); Platelet Count 296 T/CUMM (130-400); Red Blood Count 7.38 MC/CUMM (3.8-5.5); Red Cell Distribution Width 19.4 % (9.3-17.3); White Blood Count 19.8 T/CUMM (4-12)
[2020-04-13 01:21] LABS: Hematocrit 61.4 VOL% (35.7-47.0)
[2020-04-13 04:25] LABS: Band Neutrophils 4 % (0-10); Lymphocytes 1 % (20-55); Platelet Estimate Adequate; Segmented Neutrophils 94 % (50-85); Total Cells Counted 100
[2020-04-13] MEDS: LEVOTHYROXINE 25 MCG TABLET PO SCH (06:34)
[2020-04-13 06:35] LABS: Troponin I < 0.015 NG/ML (0.00-0.045)
[2020-04-13] MEDS: FUROSEMIDE 20 MG/2 ML VIAL IV SCH (06:35)
[2020-04-13] MEDS ORDERED: ASPIRIN CHEW 81 MG TABLET PO SCH (09:00)
[2020-04-13] MEDS: allopurinoL 100 MG TABLET PO SCH (09:44)
[2020-04-13] MEDS: APIXABAN 5 MG TABLET PO SCH ×2 (09:45→20:46)
[2020-04-13] MEDS: atenoloL 50 MG TABLET PO SCH (09:46)
[2020-04-13] MEDS: DILTIAZEM 60 MG TABLET PO SCH ×4 (09:46→20:46)
[2020-04-13] MEDS: AMANTADINE 100 MG CAPSULE PO SCH ×2 (09:46→20:56)
[2020-04-13] MEDS: CARBIDOPA/LEVODOPA 10-100 MG TABLET PO SCH ×2 (09:46→20:56)
[2020-04-13] MEDS: CHOLECALCIFEROL 5,000 UNIT TABLET PO SCH ×2 (10:36→20:46)
[2020-04-13] MEDS: ASPIRIN CHEW 81 MG TABLET PO SCH (20:46)
[2020-04-13 20:49] VITALS: BP 120/57
[2020-04-14] MEDS: PIPERACILLIN/TAZOBACTAM 3,375 MG in SODIUM CHLORIDE 0.9% 100 ML IV SCH ×3 (01:01→16:34)
[2020-04-14 04:36] LABS: Basophils # 0.1 10*3/uL (0.0-0.2); Basophils % 0.4 % (0.0-0.8); Hematocrit 54.7 VOL% (35.7-47.0); Immature Granulocytes % 1.5 %; Immature Granulocytes Absolute 0.43 #; Lymphocytes # 0.8 10*3/uL (1.4-4.0); Lymphocytes % 2.7 % (21.3-54.2); Mean Corpuscular HGB Conc 31.1 GM/DL (32-36); Mean Corpuscular Volume 83.6 FL (87-102); Mean Platelet Volume 10.2 FL (9.6-12.0); Monocytes % 2.2 % (1.7-12.7); Neutrophils % 93.2 % (38.7-73.9); Platelet Count 331 T/CUMM (130-400); Red Blood Count 6.54 MC/CUMM (3.8-5.5); Red Cell Distribution Width 18.5 % (9.3-17.3); White Blood Count 28.6 T/CUMM (4-12)
[2020-04-14 04:53] LABS: Calcium 9.1 MG/DL (8.5-10.1); Osmolality,Calculated 291.3 MOS/KG (273-304)
[2020-04-14 05:55] LABS: Anisocytosis 1+; Band Neutrophils 5 % (0-10); Lymphocytes 2 % (20-55); Macrocytosis 1+; Metamyelocytes 2 %; Platelet Estimate Normal; Polychromasia 2+; Segmented Neutrophils 89 % (50-85); Total Cells Counted 100
[2020-04-14] MEDS: LEVOTHYROXINE 25 MCG TABLET PO SCH (06:35)
[2020-04-14] MEDS: lisinopriL 20 MG TABLET PO SCH (09:42)
[2020-04-14] MEDS: DILTIAZEM 60 MG TABLET PO SCH ×4 (09:43→21:40)
[2020-04-14] MEDS: allopurinoL 100 MG TABLET PO SCH (09:43)
[2020-04-14] MEDS: APIXABAN 5 MG TABLET PO SCH ×2 (09:43→20:29)
[2020-04-14] MEDS: CARBIDOPA/LEVODOPA 10-100 MG TABLET PO SCH ×2 (09:44→20:29)
[2020-04-14] MEDS: FUROSEMIDE 20 MG/2 ML VIAL IV SCH (09:44)
[2020-04-14] MEDS: atenoloL 50 MG TABLET PO SCH (09:44)
[2020-04-14] MEDS: AMANTADINE 100 MG CAPSULE PO SCH ×2 (09:44→20:34)
[2020-04-14 19:51] LABS: Bilirubin,Urine Negative (Negative); Blood, Urine Large mg/dL (Negative); Glucose,Urine (UA) Negative (Negative); Ketones,Urine Negative (Negative); Nitrite,Urine Negative (Negative); Protein,Urine Negative; RBC,Urine 198 /HPF (0-4); Urine Appearance CLEAR (Clear); Urine Color Yellow (Yellow); Urine Specific Gravity 1.013 (1.001-1.035); Urine Urobilinogen < 2.0 EU/DL (0.2-1.0)
[2020-04-14] MEDS: ASPIRIN CHEW 81 MG TABLET PO SCH (20:29)
[2020-04-14] MEDS: CHOLECALCIFEROL 5,000 UNIT TABLET PO SCH (20:30)
[2020-04-15] MEDS: PIPERACILLIN/TAZOBACTAM 3,375 MG in SODIUM CHLORIDE 0.9% 100 ML IV SCH ×3 (00:50→16:30)
[2020-04-15 05:00] LABS: Basophils # 0.2 10*3/uL (0.0-0.2); Basophils % 0.8 % (0.0-0.8); Eosinophils # 0.2 10*3/uL (0.0-0.87); Eosinophils % 0.9 % (0.00-10.9); Hematocrit 56.9 VOL% (35.7-47.0); Immature Granulocytes Absolute 0.23 #; Lymphocytes # 2.4 10*3/uL (1.4-4.0); Mean Corpuscular HGB Conc 31.6 GM/DL (32-36); Mean Corpuscular Volume 83.3 FL (87-102); Mean Platelet Volume 10.8 FL (9.6-12.0); Monocytes % 3.8 % (1.7-12.7); Neutrophils % 82.5 % (38.7-73.9); Platelet Count 349 T/CUMM (130-400); Red Blood Count 6.83 MC/CUMM (3.8-5.5); Red Cell Distribution Width 18.9 % (9.3-17.3); White Blood Count 22.2 T/CUMM (4-12)
[2020-04-15 05:22] LABS: Anisocytosis 1+; Microcytosis 1+; Platelet Estimate Normal
[2020-04-15 05:28] LABS: Calcium 8.8 MG/DL (8.5-10.1); Osmolality,Calculated 292.1 MOS/KG (273-304)
[2020-04-15] MEDS: LEVOTHYROXINE 25 MCG TABLET PO SCH (06:58)
[2020-04-15] MEDS: lisinopriL 20 MG TABLET PO SCH (08:39)
[2020-04-15] MEDS: APIXABAN 5 MG TABLET PO SCH ×2 (08:39→21:40)
[2020-04-15] MEDS: FUROSEMIDE 20 MG/2 ML VIAL IV SCH (08:40)
[2020-04-15] MEDS: allopurinoL 100 MG TABLET PO SCH (08:40)
[2020-04-15] MEDS: DILTIAZEM 60 MG TABLET PO SCH (08:40)
[2020-04-15] MEDS: AMANTADINE 100 MG CAPSULE PO SCH ×2 (08:44→21:40)
[2020-04-15] MEDS: atenoloL 50 MG TABLET PO SCH (08:44)
[2020-04-15] MEDS: CARBIDOPA/LEVODOPA 10-100 MG TABLET PO SCH ×2 (08:44→21:40)
[2020-04-15] MEDS ORDERED: DILTIAZEM CD 120 MG CAPSULE PO ONE (10:02)
[2020-04-15] MEDS: DILTIAZEM CD 180 MG CAPSULE PO SCH (10:30)
[2020-04-15] MEDS: NYSTATIN CREAM 15 GM TUBE TOP SCH ×2 (14:48→21:39)
[2020-04-15] MEDS: ASPIRIN CHEW 81 MG TABLET PO SCH (21:39)
[2020-04-15] MEDS: CHOLECALCIFEROL 5,000 UNIT TABLET PO SCH (21:40)
[2020-04-16] MEDS: PIPERACILLIN/TAZOBACTAM 3,375 MG in SODIUM CHLORIDE 0.9% 100 ML IV SCH ×3 (01:22→18:15)
[2020-04-16 05:07] LABS: Basophils # 0.1 10*3/uL (0.0-0.2); Basophils % 0.7 % (0.0-0.8); Eosinophils # 0.6 10*3/uL (0.0-0.87); Eosinophils % 3.1 % (0.00-10.9); Hemoglobin 18.7 GM/DL (12.0-16.0); Immature Granulocytes % 0.9 %; Immature Granulocytes Absolute 0.17 #; Lymphocytes # 2.9 10*3/uL (1.4-4.0); Lymphocytes % 16.3 % (21.3-54.2); Mean Corpuscular HGB Conc 31.2 GM/DL (32-36); Mean Corpuscular Volume 82.9 FL (87-102); Mean Platelet Volume 10.8 FL (9.6-12.0); Monocytes % 3.4 % (1.7-12.7); NRBC # 0.02 10*3/uL; Neutrophils % 75.6 % (38.7-73.9); Platelet Count 336 T/CUMM (130-400); Red Blood Count 7.24 MC/CUMM (3.8-5.5); Red Cell Distribution Width 19.4 % (9.3-17.3); White Blood Count 17.9 T/CUMM (4-12)
[2020-04-16 05:15] LABS: Calcium 9.2 MG/DL (8.5-10.1)
[2020-04-16] MEDS: LEVOTHYROXINE 25 MCG TABLET PO SCH (06:46)
[2020-04-16] MEDS: DILTIAZEM CD 180 MG CAPSULE PO SCH (08:18)
[2020-04-16] MEDS: lisinopriL 20 MG TABLET PO SCH (08:18)
[2020-04-16] MEDS: AMANTADINE 100 MG CAPSULE PO SCH ×2 (08:18→20:57)
[2020-04-16] MEDS: atenoloL 50 MG TABLET PO SCH (08:18)
[2020-04-16] MEDS: CARBIDOPA/LEVODOPA 10-100 MG TABLET PO SCH ×2 (08:19→20:58)
[2020-04-16] MEDS: allopurinoL 100 MG TABLET PO SCH (08:19)
[2020-04-16] MEDS: APIXABAN 5 MG TABLET PO SCH ×2 (08:19→20:57)
[2020-04-16] MEDS: FUROSEMIDE 20 MG/2 ML VIAL IV SCH (08:20)
[2020-04-16] MEDS: NYSTATIN CREAM 15 GM TUBE TOP SCH ×2 (08:20→20:58)
[2020-04-16] MEDS: ASPIRIN CHEW 81 MG TABLET PO SCH (20:57)
[2020-04-16] MEDS: CHOLECALCIFEROL 5,000 UNIT TABLET PO SCH (20:57)
[2020-04-17] MEDS: PIPERACILLIN/TAZOBACTAM 3,375 MG in SODIUM CHLORIDE 0.9% 100 ML IV SCH ×2 (00:02→09:16)
[2020-04-17 05:03] LABS: Basophils # 0.2 10*3/uL (0.0-0.2); Basophils % 0.8 % (0.0-0.8); Eosinophils # 0.6 10*3/uL (0.0-0.87); Eosinophils % 3.5 % (0.00-10.9); Hemoglobin 18.7 GM/DL (12.0-16.0); Immature Granulocytes % 0.9 %; Immature Granulocytes Absolute 0.17 #; Lymphocytes # 2.8 10*3/uL (1.4-4.0); Lymphocytes % 15.3 % (21.3-54.2); Mean Corpuscular HGB Conc 31.2 GM/DL (32-36); Mean Corpuscular Volume 82.9 FL (87-102); Monocytes % 3.6 % (1.7-12.7); NRBC # 0.02 10*3/uL; Neutrophils % 75.9 % (38.7-73.9); Platelet Count 339 T/CUMM (130-400); Red Blood Count 7.24 MC/CUMM (3.8-5.5); Red Cell Distribution Width 19.1 % (9.3-17.3); White Blood Count 18.2 T/CUMM (4-12)
[2020-04-17 05:31] LABS: Calcium 9.1 MG/DL (8.5-10.1); Osmolality,Calculated 285.4 MOS/KG (273-304)
[2020-04-17] MEDS: LEVOTHYROXINE 25 MCG TABLET PO SCH (06:01)
[2020-04-17] MEDS: lisinopriL 20 MG TABLET PO SCH (09:12)
[2020-04-17] MEDS: CARBIDOPA/LEVODOPA 10-100 MG TABLET PO SCH (09:13)
[2020-04-17] MEDS: APIXABAN 5 MG TABLET PO SCH (09:13)
[2020-04-17] MEDS: atenoloL 50 MG TABLET PO SCH (09:13)
[2020-04-17] MEDS: allopurinoL 100 MG TABLET PO SCH (09:13)
[2020-04-17] MEDS: AMANTADINE 100 MG CAPSULE PO SCH (09:13)
[2020-04-17] MEDS: DILTIAZEM CD 180 MG CAPSULE PO SCH (09:14)
[2020-04-17] MEDS: NYSTATIN CREAM 15 GM TUBE TOP SCH (09:15)
[2020-04-17] MEDS: FUROSEMIDE 20 MG/2 ML VIAL IV SCH (09:16)
[2020-04-21 08:58] LABS: PV Reflex Specimen Type EDTA Whole Blood
== END 2020-04-17 13:45 | disposition home or self-care (01) | DRG 840 ==
LOC: N.ED 13:57 → N.EDINP 13:57 → SUATTDRO 16:13 → N.TELEN 17:41 → N.CC 04-12 17:17
PROVIDERS: ADMIT Internal Medicine; ATTEND Internal Medicine